=== PATIENT | female | born 1945 | race Caucasian/White ===

== ENCOUNTER 2018-06-21 15:18 | Outpatient (CLI) | payer MEDICARE ==
--- NOTE | 2018-06-21 16:04 | BD ---
DEXA BONE MINERAL DENSITY STUDY: 06/21/2018 HISTORY: Postmenopausal. Osteoporosis. COMPARISON: None available. LUMBAR SPINE BMD (g/cm2) T-SCORE Z-SCORE L1 0.731 -2.4 -0.2 L2 0.746 -2.6 -0.2 L3 0.854 -2.1 0.4 L4 0.705 -3.2 -0.7 TOTAL FEMUR 0.756 -2.6 -0.3 LEFT FEMORAL NECK 0.573 -2.5 -0.4 TOTAL FEMUR 0.84 -0.8 0.9 IMPRESSION: 1. Moderate osteopenia of the lumbar spine and left femoral neck, indicating a four-fold increased r isk for fracture. 2. This patient meets the WHO criteria for osteoporosis. POS: DONTE
== END 2018-06-21 15:19 | disposition home or self-care (01) ==
LOC: BICMAMMO 15:18
PROVIDERS: ATTEND Family Medicine
DX: Z12.31 Encounter for screening mammogram for malignant neoplasm of breast (principal); M81.0 Age-related osteoporosis without current pathological fracture; M85.88 Other specified disorders of bone density and structure, other site; R92.1 Mammographic calcification found on diagnostic imaging of breast
CPT/HCPCS: 77063; 77067; 77080

== ENCOUNTER 2019-10-16 13:17 | Outpatient (CLI) | payer MEDICARE ==
--- NOTE | 2019-10-16 16:01 | MMO ---
Bilateral MAMMO Bilat Screen [facility]. CLINICAL HISTORY: Patient is 73 years old and is seen for screening. The patient has the following family history of breast cancer: sister. The patient has no personal history of cancer. VIEWS: The views performed were: bilateral craniocaudal with tomosynthesis and bilateral mediolateral oblique with tomosynthesis. FILMS COMPARED: The present examination has been compared to a prior imaging study performed at [facility] on 06/21/2018. This study has been interpreted with the assistance of computer-aided detection. MAMMOGRAM FINDINGS: The breasts are heterogeneously dense, which could obscure a lesion on mammography. There are benign appearing calcifications seen in both breasts. There are no suspicious masses, suspicious calcifications, or new areas of architectural distortion. IMPRESSION: THERE IS NO MAMMOGRAPHIC EVIDENCE OF MALIGNANCY. A ROUTINE FOLLOW-UP MAMMOGRAM IN 1 YEAR IS RECOMMENDED. THE RESULTS OF THIS EXAM WERE SENT TO THE PATIENT. ACR BI-RADS Category 2 - Benign finding MAMMOGRAPHY NOTE: 1. A negative mammogram report should not delay a biopsy if a dominant of clinically suspicious mass is present. 2. Approximately 10% to 15% of breast cancers are not detected by mammography. 3. Adenosis and dense breasts may obscure an underlying neoplasm. Reported by: SHERINE VÁZQUEZ MD Electonically Signed: [id number]
== END 2019-10-16 13:18 | disposition home or self-care (01) ==
LOC: BICMAMMO 13:17
PROVIDERS: ATTEND Family Medicine
DX: Z12.31 Encounter for screening mammogram for malignant neoplasm of breast (principal); Z80.3 Family history of malignant neoplasm of breast
CPT/HCPCS: 77063; 77067

== ENCOUNTER 2021-01-29 21:52 | Inpatient (IN) | payer MEDICARE ==
[~2021-01-29 21:52] MED LIST: Iopamidol-370 76% 500 ML 1 ML ONE
[2021-01-29 23:36] LABS: Hemoglobin 7.4 g/dL (12.0-16.0); Mean Corpuscular HGB CONC 33.3 g/dL (32.0-36.0); Mean Corpuscular Hemoglobin 31.9 pg (27.0-31.0); Mean Corpuscular Volume 95.6 fL (78.0-98.0); Mean Platelet Volume 7.6 fL (7.4-10.4); Platelet Count 266 thou/uL (130-400); RBC Distribution Width 12.8 % (11.5-14.5); Red Blood Cell (RBC) Count 2.31 mill/uL (4.20-5.40); White Blood Cell (WBC) Count 13.9 thou/uL (4.8-10.8)
[2021-01-29 23:38] LABS: ALT (SGPT) 15 U/L (8-55); AST (SGOT) 13 U/L (5-34); Albumin 3.6 g/dL (3.4-4.8); Alkaline Phosphatase 44 U/L (40-110); Anion Gap 15 mmol/L (10-20); BUN (Urea Nitrogen) 55 mg/dL (9.8-20.1); Bilirubin, Total 0.6 mg/dL (0.2-1.2); Calc. Creatinine Clearance 0 mL/min (70-130); Calcium 9.2 mg/dL (7.8-10.44); Carbon Dioxide 22 mmol/L (23-31); Chloride 103 mmol/L (98-107); Globulin 1.9 g/dL (2.4-3.5); Glucose 234 mg/dL (83-110); Lipase 35 U/L (8-78); Potassium 4.6 mmol/L (3.5-5.1); Protein, Total 5.5 g/dL (5.8-8.1); Sodium 135 mmol/L (136-145)
[2021-01-29 23:57] LABS: #Eosinphils 0.1 thou/uL (0.0-0.7); #Lymphocytes 3.7 thou/uL (1.20-3.40); #Monocytes 0.9 thou/uL (0.11-0.59); #Neutrophils 9.3 thou/uL (1.40-6.50); %Basophils 0.2 % (0.0-1.0); %Eosinophils 0.7 % (0.0-10.0); %Lymphocytes 26.3 % (21.0-51.0); %Monocytes 6.4 % (0.0-10.0); %Neutrophils 66.4 % (42.0-75.0); RBC Morphology Normal
[2021-01-30 00:16] LABS: INR-International Normal Ratio 1.1; Prothrombin Time 14.1 sec (12.0-14.7)
[2021-01-30 00:27] LABS: PTT 18.1 sec (22.9-36.1)
[2021-01-30] MEDS ORDERED: Pantoprazole 40 MG VIAL ONE (00:32)
[2021-01-30] MEDS ORDERED: Calcium Carbonate 500 MG ChewTAB PO PRN (01:11)
[2021-01-30] MEDS ORDERED: Ondansetron PF 4 MG/2 ML Vial IVP PRN (01:17)
[2021-01-30] MEDS ORDERED: hydrALAZINE 20 MG/ML VIAL SLOW IVP PRN (02:01)
[2021-01-30] MEDS ORDERED: Labetalol HCl 100 MG/20 ML VIAL SLOW IVP PRN (02:01)
[2021-01-30 03:11] VITALS: BMI 29.4
[2021-01-30] MEDS: Lactated Ringer's 1,000 ML IV SCH ×3 (03:36→23:37)
[2021-01-30 05:23] LABS: Hemoglobin A1c 6.2 % (4.0-6.0)
[2021-01-30 07:24] LABS: ALT (SGPT) 11 U/L (8-55); AST (SGOT) 11 U/L (5-34); Albumin 2.9 g/dL (3.4-4.8); Alkaline Phosphatase 37 U/L (40-110); Anion Gap 11 mmol/L (10-20); BUN (Urea Nitrogen) 56 mg/dL (9.8-20.1); Bilirubin, Total 0.4 mg/dL (0.2-1.2); Calc. Creatinine Clearance 46 mL/min (70-130); Calcium 8.4 mg/dL (7.8-10.44); Carbon Dioxide 23 mmol/L (23-31); Chloride 106 mmol/L (98-107); Globulin 1.6 g/dL (2.4-3.5); Glucose 167 mg/dL (83-110); Potassium 4.5 mmol/L (3.5-5.1); Protein, Total 4.5 g/dL (5.8-8.1); Sodium 135 mmol/L (136-145)
[2021-01-30 07:30] LABS: #Lymphocytes 2.8 thou/uL (1.20-3.40); #Monocytes 0.7 thou/uL (0.11-0.59); %Basophils 0.1 % (0.0-1.0); %Eosinophils 0.4 % (0.0-10.0); %Lymphocytes 26.8 % (21.0-51.0); %Monocytes 6.7 % (0.0-10.0); Hemoglobin 5.6 g/dL (12.0-16.0); Mean Corpuscular HGB CONC 33.3 g/dL (32.0-36.0); Mean Corpuscular Hemoglobin 31.6 pg (27.0-31.0); Mean Corpuscular Volume 94.9 fL (78.0-98.0); Mean Platelet Volume 7.8 fL (7.4-10.4); Platelet Count 192 thou/uL (130-400); RBC Distribution Width 12.9 % (11.5-14.5); Red Blood Cell (RBC) Count 1.77 mill/uL (4.20-5.40); White Blood Cell (WBC) Count 10.5 thou/uL (4.8-10.8)
[2021-01-30] MEDS ORDERED: Furosemide 20 MG/2 ML VIAL SLOW IVP SCH (07:45)
[2021-01-30] MEDS ORDERED: Alendronate Sodium 70 mg Tablet PO SCH (09:00)
[2021-01-30] MEDS ORDERED: Amlodipine 5 MG TAB PO SCH (09:00)
[2021-01-30] MEDS ORDERED: Carvedilol 6.25 MG TAB PO SCH (09:00)
[2021-01-30] MEDS ORDERED: Non-Formulary Item 1 EACH (Cider Vinegar [Apple Cider Vinegar] 500 MG Tablet) PO SCH (09:00)
[2021-01-30] MEDS ORDERED: CRANBERRY FRUIT EXTRACT 500 MG PO SCH (09:00)
[2021-01-30] MEDS ORDERED: Fish Oil 1,000 MG CAP PO SCH (09:00)
[2021-01-30] MEDS ORDERED: Cholecalciferol 1,000 UNITS (25 MCG) TAB PO SCH (09:00)
[2021-01-30] MEDS ORDERED: Atorvastatin Calcium 20 MG TAB PO SCH (09:00)
[2021-01-30] MEDS: Pantoprazole 40 MG VIAL IVP SCH ×2 (09:18→20:10)
[2021-01-30 11:47] LABS: Iron 154 ug/dL (50-170); Iron Binding Capacity, Total 341 mcg/dL (265-497); Transferrin, Serum 273 mg/dL (173-360)
[2021-01-30 12:12] LABS: Ferritin 35.29 ng/mL (10-291)
[2021-01-30 12:52] LABS: Hemoglobin 6.1 g/dL (12.0-16.0); Mean Corpuscular HGB CONC 33.7 g/dL (32.0-36.0); Mean Corpuscular Hemoglobin 32.4 pg (27.0-31.0); Mean Platelet Volume 7.6 fL (7.4-10.4); Platelet Count 211 thou/uL (130-400); RBC Distribution Width 13.3 % (11.5-14.5); Red Blood Cell (RBC) Count 1.87 mill/uL (4.20-5.40); White Blood Cell (WBC) Count 11.4 thou/uL (4.8-10.8)
[2021-01-30 12:53] LABS: Band 1 % (5-11); Lymphocytes 39 % (21-51); MDiff Complete? YES; Neutrophil 60 % (42-75)
[2021-01-30 17:45] LABS: Hemoglobin 9.9 g/dL (12.0-16.0); Mean Corpuscular HGB CONC 33.3 g/dL (32.0-36.0); Mean Corpuscular Hemoglobin 31.4 pg (27.0-31.0); Mean Corpuscular Volume 94.3 fL (78.0-98.0); Mean Platelet Volume 7.5 fL (7.4-10.4); Platelet Count 163 thou/uL (130-400); RBC Distribution Width 13.2 % (11.5-14.5); Red Blood Cell (RBC) Count 3.14 mill/uL (4.20-5.40); White Blood Cell (WBC) Count 12.8 thou/uL (4.8-10.8)
[2021-01-30 23:31] LABS: SARS-CoV-2 PCR by NAA Not Detected (NotDetected)
[2021-01-31 06:56] LABS: #Eosinphils 0.2 thou/uL (0.0-0.7); #Lymphocytes 2.7 thou/uL (1.20-3.40); #Monocytes 0.6 thou/uL (0.11-0.59); #Neutrophils 3.7 thou/uL (1.40-6.50); %Eosinophils 2.8 % (0.0-10.0); %Lymphocytes 37.2 % (21.0-51.0); %Monocytes 8.2 % (0.0-10.0); %Neutrophils 51.8 % (42.0-75.0); Hemoglobin 9.1 g/dL (12.0-16.0); Mean Corpuscular HGB CONC 34.2 g/dL (32.0-36.0); Mean Corpuscular Hemoglobin 32.1 pg (27.0-31.0); Mean Corpuscular Volume 93.9 fL (78.0-98.0); Mean Platelet Volume 7.5 fL (7.4-10.4); Platelet Count 148 thou/uL (130-400); RBC Distribution Width 13.4 % (11.5-14.5); Red Blood Cell (RBC) Count 2.85 mill/uL (4.20-5.40); White Blood Cell (WBC) Count 7.1 thou/uL (4.8-10.8)
[2021-01-31 07:13] LABS: ALT (SGPT) 12 U/L (8-55); AST (SGOT) 12 U/L (5-34); Albumin 2.9 g/dL (3.4-4.8); Alkaline Phosphatase 33 U/L (40-110); Anion Gap 9 mmol/L (10-20); BUN (Urea Nitrogen) 28 mg/dL (9.8-20.1); Bilirubin, Total 0.6 mg/dL (0.2-1.2); Calc. Creatinine Clearance 51 mL/min (70-130); Calcium 8.2 mg/dL (7.8-10.44); Carbon Dioxide 24 mmol/L (23-31); Chloride 109 mmol/L (98-107); Globulin 1.7 g/dL (2.4-3.5); Glucose 118 mg/dL (83-110); Potassium 4.1 mmol/L (3.5-5.1); Protein, Total 4.6 g/dL (5.8-8.1); Sodium 138 mmol/L (136-145)
[2021-01-31] MEDS ORDERED: Fentanyl 100 MCG/2 ML VIAL ONE (07:35)
[2021-01-31] MEDS ORDERED: PROPOFOL 200 MG/20 ML VIAL ONE (08:18)
[2021-01-31] MEDS: Pantoprazole 40 MG VIAL IVP SCH ×2 (09:26→20:59)
[2021-01-31] MEDS ORDERED: hydrALAZINE 20 MG/ML VIAL SLOW IVP PRN (11:27)
[2021-01-31] MEDS: Lactated Ringer's 1,000 ML IV SCH ×2 (11:30→20:57)
[2021-01-31] MEDS ORDERED: Atorvastatin Calcium 40 MG TAB PO SCH (17:00)
[2021-01-31] MEDS: Carvedilol 6.25 MG TAB PO SCH (17:08)
[2021-02-01] MEDS: Lactated Ringer's 1,000 ML IV SCH (05:35)
[2021-02-01 07:20] LABS: #Eosinphils 0.2 thou/uL (0.0-0.7); #Lymphocytes 1.6 thou/uL (1.20-3.40); #Monocytes 0.6 thou/uL (0.11-0.59); #Neutrophils 2.8 thou/uL (1.40-6.50); %Basophils 0.1 % (0.0-1.0); %Eosinophils 4.1 % (0.0-10.0); %Lymphocytes 30.5 % (21.0-51.0); %Neutrophils 54.3 % (42.0-75.0); Mean Corpuscular HGB CONC 33.2 g/dL (32.0-36.0); Mean Corpuscular Hemoglobin 31.2 pg (27.0-31.0); Mean Corpuscular Volume 94.2 fL (78.0-98.0); Mean Platelet Volume 7.4 fL (7.4-10.4); Platelet Count 143 thou/uL (130-400); RBC Distribution Width 13.6 % (11.5-14.5); Red Blood Cell (RBC) Count 2.87 mill/uL (4.20-5.40); White Blood Cell (WBC) Count 5.2 thou/uL (4.8-10.8)
[2021-02-01 07:44] LABS: ALT (SGPT) 12 U/L (8-55); AST (SGOT) 16 U/L (5-34); Alkaline Phosphatase 32 U/L (40-110); Anion Gap 9 mmol/L (10-20); BUN (Urea Nitrogen) 17 mg/dL (9.8-20.1); Bilirubin, Total 0.8 mg/dL (0.2-1.2); Calc. Creatinine Clearance 48 mL/min (70-130); Calcium 8.5 mg/dL (7.8-10.44); Carbon Dioxide 26 mmol/L (23-31); Chloride 108 mmol/L (98-107); Globulin 1.6 g/dL (2.4-3.5); Glucose 138 mg/dL (83-110); Potassium 4.1 mmol/L (3.5-5.1); Protein, Total 4.6 g/dL (5.8-8.1); Sodium 139 mmol/L (136-145)
[2021-02-01] MEDS: Pantoprazole 40 MG VIAL IVP SCH (08:32)
[2021-02-01] MEDS: Carvedilol 6.25 MG TAB PO SCH (08:32)
[2021-02-01] MEDS ORDERED: Loratadine 10 MG TAB PO SCH (13:15)
[2021-02-01] MEDS ORDERED: Amlodipine 5 MG TAB PO SCH (17:00)
[2021-02-01 17:04] VITALS: BP 142/72; TEMP 98.1
[2021-02-02] MEDS ORDERED: Loratadine 10 MG TAB PO SCH (09:00)
[2021-02-02] MEDS ORDERED: Cetirizine HCl 10 MG TAB PO SCH (09:00)
== END 2021-02-01 17:14 | disposition home or self-care (01) | DRG 378 ==
LOC: ERS 21:52 → T4-B 01-30 00:25
PROVIDERS: ADMIT Family Medicine; ATTEND Family Medicine
PROC: 30233N1 Transfusion of Nonautologous Red Blood Cells into Peripheral Vein, Percutaneous Approach (ICD-10-PCS; 2021-01-30)
PROC: 8E0ZXY6 Isolation (ICD-10-PCS; 2021-01-30)
PROC: 0DB68ZX Excision of Stomach, Via Natural or Artificial Opening Endoscopic, Diagnostic (ICD-10-PCS; principal; 2021-01-31)
DX: K25.4 Chronic or unspecified gastric ulcer with hemorrhage (principal); N17.9 Acute kidney failure, unspecified; D62 Acute posthemorrhagic anemia; K92.0 Hematemesis; Z20.822 Contact with and (suspected) exposure to COVID-19; N18.30 Chronic kidney disease, stage 3 unspecified; I12.9 Hypertensive chronic kidney disease with stage 1 through stage 4 chronic kidney disease, or unspecified chronic kidney disease; M35.3 Polymyalgia rheumatica; I35.0 Nonrheumatic aortic (valve) stenosis; E78.5 Hyperlipidemia, unspecified; K44.9 Diaphragmatic hernia without obstruction or gangrene; R73.03 Prediabetes; K57.90 Diverticulosis of intestine, part unspecified, without perforation or abscess without bleeding; Z79.899 Other long term (current) drug therapy; Z90.710 Acquired absence of both cervix and uterus; Z88.8 Allergy status to other drugs, medicaments and biological substances; Z79.02 Long term (current) use of antithrombotics/antiplatelets; Z86.73 Personal history of transient ischemic attack (TIA), and cerebral infarction without residual deficits; Z90.721 Acquired absence of ovaries, unilateral; Z83.79 Family history of other diseases of the digestive system
CPT/HCPCS: 36415; 36430; 74177; 80053; 82274; 82607; 82728; 82746; 83036; 83540; 83550; 83630; 83690; 84466; 85025; 85060; 85610; 85730; 86850; 86900; 86901; 87015; 87045; 87046; 87081; 87206; 87324; 87328; 87329; 87338; 87427; 87449; 88305; 96374; C9113; J1940; J2704; J3010; J7120; P9016; Q9967; U0003; U0005